=== PATIENT | male | born 1945 | race Caucasian/White ===

== ENCOUNTER 2019-02-01 16:32 | Inpatient (IN) | payer MEDICARE ==
[2019-02-01] MEDS ORDERED: NS 0.9% 1000 ML** 1,000 ML IV ONE ×3 (17:08→19:58)
[2019-02-01] MEDS ORDERED: Ondansetron INJ* 2 MG/ML VIAL IV ONE ×2 (17:08→19:27)
[2019-02-01] MEDS ORDERED: Morphine 4 MG/ML VIAL (1 ml) 4 MG/ML VIAL IV ONE (17:08)
--- NOTE | 2019-02-01 17:13 | ED ---
GI/ HPI - HPI Summary HPI Summary: 73 year old male presents with severe abdominal pain today. States pain is diffuse and radiates to his back. He is in severe pain. He admits to shortness breath with it. No chest pain. Never had this pain before. He does has history of an appendectomy with an abscess a couple years ago. Also had a hernia repair. No urinary symptoms. No diarrhea constipation. No fevers. Has history of high cholesterol and high blood pressure. no alcohol history. stets pain is worst when he takes a deep breath. no smoking history. - History of Current Complaint Chief Complaint: EDAbdPain Time Seen by Provider: 02/01/19 17:04 Stated Complaint: ABDOMINAL PAINS PER PT Pain Intensity: 8 - Allergy/Home Medications Allergies/Adverse Reactions: Allergies Allergy/AdvReac Type Severity Reaction Status Date / Time No Known Allergies Allergy Verified 02/01/19 17:13 Home Medications: Home Medications Lisinopril TAB* [Prinivil TAB*] 20 mg PO DAILY 02/01/19 [History Confirmed 02/01] Lovastatin(NF) [Mevacor(NF)] 20 mg PO DAILY 02/01/19 [History Confirmed 02/01/19 ] PMH/Surg Hx/FS Hx/Imm Hx Endocrine/Hematology History: Denies: Hx Bone Marrow Disease, Hx Diabetes, Hx Sickle Cell Disease, Hx Thyroid Disease, Hx Anemia Cardiovascular History: Denies: Hx Angina, Hx Cardiomegaly, Hx Congestive Heart Failure, Hx Coronary Artery Disease, Hx Hypertension, Hx Pacemaker/ICD, Hx Peripheral Vascular Disease, Hx Rheumatic Fever, Hx Valvular Heart Disease, Other Cardiovascular Problems/Disorders Respiratory History: Denies: Hx Asthma, Hx Chronic Obstructive Pulmonary Disease (COPD), Hx Pulmonary Edema, Hx Pulmonary Embolism, Hx Sleep Apnea, Other Respiratory Problems/Disorders GI History: Reports: Hx Jaundice Denies: Hx Cirrhosis, Hx Crohn's Disease, Hx Gastroesophageal Reflux Disease , Hx Hiatal Hernia, Hx Irritable Bowel, Hx Ulcer, Other GI Disorders History: Denies: Hx Kidney Infection, Hx Kidney Stones, Hx Renal Disease, Other Problems/Disorders Musculoskeletal History: Denies: Hx Arthritis, Hx Bursitis, Hx Tendonitis, Other Musculoskeletal History Sensory History: Denies: Hx Cataracts, Hx Contacts or Glasses, Hx Glaucoma, Hx Hearing Aid Opthamlomology History: Denies: Hx Cataracts, Hx Contacts or Glasses, Hx Glaucoma Neurological History: Denies: Hx Headaches, Hx Migraine, Hx Nerve Disease, Hx Seizures, Other Neuro Impairments/Disorders Psychiatric History: Denies: Hx Anxiety, Hx Depression, Hx Panic Disorder - Cancer History Hx Chemotherapy: No - Surgical History Surgery Procedure, Year, and Place: left inguinal hernia repair 2004. APPENDIX 2014 Hx Anesthesia Reactions: No - pt passed out after getting home from surgery Infectious Disease History: No Infectious Disease History: Denies: Hx Clostridium Difficile, Hx Hepatitis, Hx Human Immunodeficiency Virus (HIV), Hx of Known/Suspected MRSA, Hx Shingles, Hx Tuberculosis, Traveled Outside the [place] in Last 30 Days - Family History Known Family History: Positive: Non-Contributory - Social History Alcohol Use: Occasionally Substance Use Type: Reports: None Smoking Status (MU): Never Smoked Tobacco Review of Systems Negative: Fever Negative: Chest Pain Negative: Shortness Of Breath Positive: Abdominal Pain, Vomiting, Nausea. Negative: Diarrhea All Other Systems Reviewed And Are Negative: Yes Physical Exam Triage Information Reviewed: Yes Vital Signs On Initial Exam: Initial Vitals Temp Pulse Resp BP Pulse Ox 96.1 F 74 20 111/76 97 02/01/19 16:34 02/01/19 16:34 02/01/19 16:34 02/01/19 16:34 02/01/19 16:34 Vital Signs Reviewed: Yes Appearance: Positive: Well-Appearing Skin: Positive: Warm, Dry Head/Face: Positive: Normal Head/Face Inspection Eyes: Positive: Normal, Conjunctiva Clear ENT: Positive: Pharynx normal Respiratory/Lung Sounds: Positive: Clear to Auscultation, Breath Sounds Present Cardiovascular: Positive: Normal, RRR Abdomen Description: Positive: Soft, Other: - severe diffuse abd pain Bowel Sounds: Positive: Present Musculoskeletal: Positive: Normal Neurological: Positive: Normal Psychiatric: Positive: Normal Procedures - Sedation Patient Received Moderate/Deep Sedation with Procedure: No Diagnostics - Vital Signs Vital Signs Temp Pulse Resp BP Pulse Ox 02/01/19 16:34 96.1 F 74 20 111/76 97 - Laboratory Result Diagrams: 02/01/19 17:21 02/01/19 17:21 Lab Statement: Any lab studies that have been ordered have been reviewed, and results considered in the medical decision making process. - CT chest, abd CT Interpretation Completed By: Radiologist Summary of CT Findings: IMPRESSION: 1. There is cholelithiasis without pericholecystic inflammatory change. 2. There is edematous change of the pancreas with extensive peripancreatic fat stranding and nonloculated fluid which also extends along the bilateral anterior pararenal fascia, in the perihepatic and perisplenic regions, along the paracolic gutters and into the pelvis, suspicious for acute pancreatitis without loculated fluid collections. 3. No aortic dissection. 4. There is slight increase in mild prostate gland enlargement. 5. There is increased upper abdominal lymphadenopathy, particularly at the celiac axis and near the alen hepatis with the largest lymph node measuring 1.4 cm in short axis. - EKG No standard instances Cardiac Rate: NL EKG Rhythm: Sinus Rhythm Summary of EKG Findings: sinus rhythm Re-Evaluation - Re-Evaluation First Eval Change: Unchanged Comment: pain contines Second Eval Change: Improved Comment: pain improved after dilaudid but o2 dropped to 85s so placed on oxygen Third Eval Re-Evaluation Time: 20:00 Comment: discussed results pain returning GIGU Course/Dx - Course Course Of Treatment: 73 year old male presents with severe abdominal pain today. States pain is diffuse and radiates to his back. He is in severe pain. He admits to shortness breath with it. No chest pain. Never had this pain before. He does has history of an appendectomy with an abscess a couple years ago. Also had a hernia repair. No urinary symptoms. No diarrhea constipation. No fevers. Has history of high cholesterol and high blood pressure. On exam severe diffuse abdominal tenderness. Patient appears uncomfortable. wbc 27. Lactic elevated at 4 but repeat at 2. LFTs elevated: bilruibn 3, ast 261, alt 262. lipase [address] shows pancreatitis. vitals normal. dr tian called and discussed case that no need for surgery at this time. gave dose of zosyn due to potenital infection with wbc count. gave morphine with no improvement. gave dilaudid with improvement but o2 stat dropped so placed on oxygen. discussed with dr laws who agrees to admit. - Diagnoses Differential Diagnoses - Male: Abdominal Aortic Aneurysm, Gall Bladder Disease, Sepsis Provider Diagnoses: Pancreatitis Discharge ED - Sign-Out/Discharge Documenting (check all that apply): Patient Departure - Discharge Plan Condition: Stable Disposition: ADMITTED TO [facility] Referrals: No Primary Care Phys,NOPCP [Primary Care Provider] - - Billing Disposition and Condition Condition: STABLE Disposition: Admitted to [facility]
[2019-02-01 17:35] LABS: Hematocrit 56 % (42-52); Hemoglobin 19.2 g/dL (14.0-18.0); Mean Corpuscular HGB Conc 34 g/dL (31-36); Mean Corpuscular Hemoglobin 32 pg (27-31); Mean Corpuscular Volume 93 fL (80-94); Platelet Count 215 10^3/uL (150-450); Red Blood Count 6.01 10^6 /uL (4.18-5.48); Red Cell Distribution Width 14 % (10-15); White Blood Count 27.2 10^3/uL (3.5-10.8)
[2019-02-01] MEDS ORDERED: HYDROmorphone INJ1* 1 MG/ML SYRINGE IV SLOW PU ONE (17:39)
[2019-02-01 17:54] LABS: Albumin 4.3 g/dL (3.2-5.2); Albumin/Globulin Ratio 1.4 (1-3); C Reactive Protein 7.06 mg/L (<8.01); Calcium 9.7 mg/dL (8.6-10.3); EGFR African American 41.3 (>60); EGFR Non-African American 34.1 (>60); Globulin 3.1 g/dL (2-4); Potassium 4.5 mmol/L (3.5-5.0); Total Protein 7.4 g/dL (6.4-8.9)
[2019-02-01 18:11] LABS: ABS Lymphocytes 0.8 10^3/ul (1.0-4.8); ABS Monocytes 1.9 10^3/ul (0-0.8); ABS Neutrophils 24.5 10^3/ul (1.5-7.7); ABS Nucleated RBC 0.1 10^3/ul; Lymphocyte % 2.9 %; Nucleated Red Blood Cells % 0.2
[2019-02-01] MEDS ORDERED: Iodixanol* (CONTRAST) 320 MG/ML 100 ML SDV IV ONE (18:52)
[2019-02-01] MEDS ORDERED: HYDROmorphone INJ* 0.5 MG/0.5 ML SYRINGE IV SLOW PU ONE (19:15)
[2019-02-01] MEDS ORDERED: Piperacillin/Tazobac ADVAN(*) 3.375 GM in NS 0.9% 100 ML* 100 ML IVPB ONE (19:16)
[2019-02-01] MEDS ORDERED: Morphine 10 MG/ML VIAL (1 ml) IV PRN (21:00)
[2019-02-01] MEDS ORDERED: Morphine INJ* 2 MG/ML 1 ML SYRINGE (TWO MG - NEW SYRINGE VERSION) IV PRN (21:01)
--- NOTE | 2019-02-01 23:08 | HP ---
CC: Dr. Ivy * ADMISSION HISTORY AND PHYSICAL: DATE OF ADMISSION: 02/01/19 PRIMARY CARE PROVIDER: Dr. Ivy. HEALTHCARE PROXY: His . CODE STATUS: DNR. Discussed with the patient and family MOLST, filled out on his behalf. CHIEF COMPLAINT: Abdominal pain. SOURCE OF INFORMATION: History obtained from interview with the patient and his family. RELIABILITY: Very good. HISTORY OF PRESENT ILLNESS: This is a 73-year-old man with a past medical history of hypertension, hyperlipidemia, who has been feeling himself except for 1 day 3 weeks ago when he was not feeling well, had a "stomach bug" for 1 day with stomach pain. No nausea, vomiting, fevers, chills, night sweats, or changes in weight since that time until today approximately 11 a.m., was outside , working on his four kerr and felt feverish, came inside to the bathroom and started vomiting. There was sudden onset of belly pain. Continued vomiting every 30 minutes for approximately 5 hours until he presented to the emergency room. As indicated above, he has been feeling well. He did feel subjectively febrile at home today, but no chills, night sweats, no changes in weight at home, no changes in his stool caliber or frequency. No skin changes. No medication changes, no sick contacts, no travel. He was seen in the emergency room. Hospitalist service was consulted for admission. PAST MEDICAL HISTORY: Includes hypertension, hyperlipidemia. PAST SURGICAL HISTORY: History of appendectomy with abscess, hernia repair. MEDICATIONS: 1. Lisinopril 20. 2. Lovastatin 20 daily. ALLERGIES: None. FAMILY HISTORY: His mother had gastric cancer. SOCIAL HISTORY: No tobacco. Drinks approximately 4 to 5 beers per year. No substance use. He is retired. He previously owned a [employer]. REVIEW OF SYSTEMS: As per HPI, includes vomiting, abdominal pain, and otherwise all other systems are negative. PHYSICAL EXAMINATION GENERAL: Well-nourished man, sitting up in bed, intermittently groans, otherwise no apparent distress. VITAL SIGNS: In the emergency room, 132/89, heart rate 69, respiratory rate is 20, he is 95% on room air, his T-max in the emergency room is 96.1. HEENT: Oropharynx is clear. He has dry mucous membranes. Sclerae are anicteric. NECK: He has non-elevated JVD. No cervical or supraclavicular lymphadenopathy. LUNGS: Clear throughout. HEART: He has regular rate and rhythm. No murmurs, rubs, or gallops. ABDOMEN: His abdomen is soft, nondistended. He has mild tenderness to palpation throughout. EXTREMITIES: Warm and well perfused. He does have trace bilateral lower extremity edema. He has less than 2-second cap refill. NEUROLOGIC: He is alert and oriented x3. His cranial nerves II through XII are intact. He has no apparent anxiety, agitation, or depression. DIAGNOSTIC STUDIES/LAB DATA: Labs were reviewed. White blood cell count is 27.2, hemoglobin 19.2, hematocrit 56, platelets 215. His BUN is 29, his creatinine is 1.93, his glucose is 190, his lactic acid is 4.1. His total bilirubin is 3.0, AST 261, ALT 262. His lipase is 9108, amylase 262. Data reviewed. CT abdomen and pelvis: Chest, significant bilateral bibasilar opacity suspicious for pneumonitis and/or atelectasis, mediastinal and bilateral hilar lymphadenopathy. No PE. Abdomen, cholelithiasis without pericholecystic inflammatory change. Edematous change at the pancreas with extensive peripancreatic fat stranding and non-loculated fluid which is also extended to bilateral anterior pararenal fascia in the perihepatic and perisplenic regions along the pericolic gutters and into the pelvis suspicious for acute pancreatitis without loculated fluid collections. Slight increase in mild prostate gland enlargement. There was increased upper abdominal lymphadenopathy particularly at the celiac access and near the alen hepatis with the largest lymph node measuring 1.4 cm in short access. ASSESSMENT AND PLAN: This is a 73-year-old man with past medical history of hypertension, hyperlipidemia presenting with abdominal pain, findings consistent with pancreatitis. 1. Pancreatitis. Etiology unclear. No evidence of gallstones, although an ultrasound may be warranted to further interrogate the common bile duct. He may have passed the stone. Sudden onset supports an acute process like a stone. He denies all alcohol except for several drinks per year. He does have hypercholesterolemia, triglycerides will be checked in the morning. He is on minimal medications, lisinopril and lovastatin. Nothing over the counter. Of note, the patient does have mediastinal hilar and upper abdominal lymphadenopathy, unclear if this is reactive or somehow tied to the causative agent for his pancreatitis. There are infections, both bacterial and viral, which can cause pancreatitis in the setting of diffusely enlarged lymph nodes. This should be considered, if no other causative etiology is identified. For treatment of his pancreatitis, I placed him on lactated Ringer's 250 cc/hr standing. He is n.p.o. and morphine IV for pain control. Yasmine's criteria is 0 hours to include age greater than 55. White blood cell count is greater than 15,000 and his AST is greater than 250. An LDH has been added in order to utilize if thought helpful tomorrow. 2. Lactic acidosis. Suspect in the setting of pancreatitis. I did not suspect a sepsis despite leukocytosis and lactic acid. He will be getting fluid for the treatment of his pancreatitis. He did receive Zosyn in the emergency room prior to calling the hospitalist. I will not continue the antibiotics. 3. Acute kidney injury. Prerenal in the setting of pancreatitis. Fluid as indicated above. 4. Leukocytosis. As indicated above, suspect in the setting of pancreatitis. We will not continue antibiotics. Patients with pancreatitis similarly can have fevers. No evidence of necrosis on CAT scan at this time. 5. DVT prophylaxis. Heparin subcu. [id number]/[facility] #: [id number] [facility]
[2019-02-01] MEDS: Heparin VIAL(*) 5000 UNITS/ML VIAL (FIVE THOUSAND) SUBCUT SCH (23:55)
[2019-02-01] MEDS: Lactated Ringers 1000 ML Bag* 1,000 ML IV SCH (23:56)
[2019-02-02] MEDS ORDERED: Morphine INJ* 4 MG/ML 1 ML SYRINGE (NEW SYRINGE VERSION) IV PRN (00:11)
[2019-02-02] MEDS ORDERED: HYDROmorphone INJ1* 1 MG/ML SYRINGE IV SLOW PU PRN (01:40)
[2019-02-02] MEDS ORDERED: Ondansetron INJ* 2 MG/ML VIAL IV PRN (01:41)
[2019-02-02] MEDS ORDERED: HYDROmorphone INJ1* 1 MG/ML SYRINGE ONE (01:45)
[2019-02-02] MEDS: Lactated Ringers 1000 ML Bag* 1,000 ML IV SCH ×2 (04:14→07:53)
[2019-02-02] MEDS: HYDROmorphone INJ1* 1 MG/ML SYRINGE IV SLOW PU PRN ×8 (04:43→21:35)
[2019-02-02 06:47] LABS: Hematocrit 55 % (42-52); Hemoglobin 18.9 g/dL (14.0-18.0); Mean Corpuscular HGB Conc 35 g/dL (31-36); Mean Corpuscular Hemoglobin 32 pg (27-31); Mean Corpuscular Volume 93 fL (80-94); Mean Platelet Volume 7.9 fL (7.4-10.4); Platelet Count 204 10^3/uL (150-450); Red Blood Count 5.84 10^6 /uL (4.18-5.48); Red Cell Distribution Width 14 % (10-15); White Blood Count 23.6 10^3/uL (3.5-10.8)
[2019-02-02 06:49] LABS: ABS Lymphocytes 0.7 10^3/ul (1.0-4.8); ABS Monocytes 1.7 10^3/ul (0-0.8); ABS Neutrophils 21.2 10^3/ul (1.5-7.7); Lymphocyte % 2.8 %
[2019-02-02] MEDS: Heparin VIAL(*) 5000 UNITS/ML VIAL (FIVE THOUSAND) SUBCUT SCH (07:00)
[2019-02-02 07:03] LABS: Albumin 3.8 g/dL (3.2-5.2); Albumin/Globulin Ratio 1.4 (1-3); BUN/Creatinine Ratio 19.7 (8-20); Calcium 8.2 mg/dL (8.6-10.3); EGFR African American 38.9 (>60); EGFR Non-African American 32.2 (>60); Globulin 2.7 g/dL (2-4); HDL Cholesterol 24.6 mg/dL; Indirect Bilirubin 2.8 mg/dL (0.3-1.0); Magnesium 1.7 mg/dL (1.9-2.7); Total Bilirubin 3.8 mg/dL (0.2-1.0); Total Protein 6.5 g/dL (6.4-8.9)
[2019-02-02 07:06] LABS: Potassium 6.1 mmol/L (3.5-5.0)
[2019-02-02] MEDS ORDERED: CALCIUM GLUCONATE* 1 GM/10 ML VIAL (in Pyxis) IV PUSH ONE (08:08)
[2019-02-02] MEDS ORDERED: NS 0.9% 1000 ML** 1,000 ML IV SCH ×3 (08:15→20:13)
[2019-02-02] MEDS ORDERED: NS 0.9% IV ONE (08:45)
[2019-02-02] MEDS ORDERED: NS 0.9% 1000 ML** 1,000 ML IV ONE ×2 (09:12→12:03)
[2019-02-02 09:25] LABS: Corrected Retic Count 2.2 % (0.5-1.5); Hematocrit for Retic CNT 54 % (42-52); Immature Retic Fraction 0.46; RBC Retic Count 5.81 10^6/uL (4.18-5.48)
[2019-02-02 09:40] LABS: BUN/Creatinine Ratio 20.9 (8-20); Calcium 8.4 mg/dL (8.6-10.3); EGFR African American 38.3 (>60); EGFR Non-African American 31.6 (>60)
[2019-02-02 09:42] LABS: Potassium 5.7 mmol/L (3.5-5.0)
[2019-02-02 10:28] LABS: TSH (Thyroid Stimulating Horm) 2.41 mcIU/mL (0.34-5.60)
[2019-02-02] MEDS ORDERED: INSULIN REGULAR IV ONE ×3 (11:00→11:02)
[2019-02-02] MEDS ORDERED: D10W IV ONE ×3 (11:00→11:02)
[2019-02-02 13:25] LABS: Urine Appearance Cloudy; Urine Bacteria Absent (Absent); Urine Bilirubin Negative (Negative); Urine Blood 2+ (Negative); Urine Color Amber; Urine Glucose 3+(>=500 mg/dL) (Negative); Urine Ketones Negative (Negative); Urine Nitrite Negative (Negative); Urine Protein 1+(30 mg/dL) (Negative); Urine Red Blood Cell 3+(>10/hpf) (Absent); Urine Specific Gravity 1.027 (1.010-1.030); Urine Urobilinogen Negative (Negative); Urine White Blood Cell 2+(11-20/hpf) (Absent)
--- NOTE | 2019-02-02 14:33 | PN ---
Hospitalist Progress Note Date of Service: 02/02/19 Peter Vicente is a 73 year-old caucassian male with a history of HTN and HLD who presented to the [facility] ED yesterday evening (02/01/19) with complaints of acute onset severe abdominal pain, nausea, vomiting and subjective fever that began that morning while he was working outside. He was admitted by Dr. Aparicio last evening. Code status is DNR. PE, labs and imaging studies including CT and US are suggestive of acute pancreatitis due to an obstructive gallstone. Patient denies tobacco and recreational drug use and admits to only very minimal alcohol use. Family recalled a history of hyperbilirubinemia today which was not previously known to the care team. Treatment was administered today for hyperkalemia consisting of 1 gm calcium gluconate IV and 10 units of regular insulin in 500mL of D10W with some efficacy. Bolus and maintenance fluid administration totalling 3L+ has been given today - mucous membranes have been dry and urine output has been low. EKG findings have been normal. Allergies: NKA Current Hospital Medications: Enoxaparin Sodium (Lovenox(*)) 40 mg SUBCUT BEDTIME [facility] Hydromorphone HCl (Dilaudid Inj1s*) 1 mg IV SLOW PU Q2H PRN PRN Reason: PAIN - SEVERE Last Admin: 02/02/19 14:48 Dose: 1 mg Sodium Chloride (Ns 0.9% 1000 Ml) 1,000 mls @ 250 mls/hr IV PER RATE TANVI Last Admin: 02/02/19 12:37 Dose: 250 mls/hr Influenza Virus Vaccine (Fluarix Quad [id number] Syr) 0.5 ml IM .ONCE ONE Stop: 02/03/19 09:01 Ondansetron HCl (Zofran Inj*) 4 mg IV Q4H PRN PRN Reason: NAUSEA Current Home Medications: 3 Medication Instructions Recorded Confirmed Type Ibuprofen TAB* [Motrin TAB*] 400 mg PO Q6H PRN 09/11/13 02/01/19 History Lisinopril TAB* [Prinivil TAB*] 20 mg PO DAILY 02/01/19 02/01/19 History Lovastatin(NF) [Mevacor(NF)] 20 mg PO DAILY 02/01/19 02/01/19 History Vitals: 3 Temp Pulse Resp BP Pulse Ox 97.1 F 99 17 143/86 97 02/02/19 11:48 02/02/19 11:48 02/02/19 14:48 02/02/19 11:48 02/02/19 11:48 PE: General: Mr. Vicente is awake, alert and oriented person, place, time and events and pleasantly cooperates with the interview and examination today. He is obviously experiencing significant discomfort, although states that he is feeling somewhat better this afternoon, all things considered. He rates his pain at 5/ 10 which he states is the lowest his pain has been since admission, pain level at onset was 9+. HEENT: PERRLA, EOMI Chest: Lungs clear and equal bilaterally Normal S1/S2 No rubs, clicks or gallops Abdomen: Abdomen is protuberant, warm and tender to palpation, particularly in the RU/RL quadrants. Positive mata sign. Extremities: Good hand entry level management strength. Distal CMS intact. Labs: Abnormal hematology and chemistry findings: 3 02/01/19 02/01/19 02/02/19 17:21 17:21 06:40 WBC 27.2 H 23.6 H RBC 6.01 H 5.84 H Hgb 19.2 H 18.9 H Hct 56 H 55 H MCH 32 H 32 H Absolute Neuts (auto) 24.5 H 21.2 H Absolute Lymphs (auto) 0.8 L 0.7 L Absolute Monos (auto) 1.9 H 1.7 H Potassium Carbon Dioxide BUN 29 H Creatinine 1.93 H Glucose 190 H Lactic Acid Calcium Magnesium Total Bilirubin 3.00 H Direct Bilirubin Indirect Bilirubin AST 261 H ALT 262 H Lactate Dehydrogenase 380 H Amylase 262 H Lipase 9108 H 3 02/02/19 02/02/19 06:40 06:40 WBC RBC Hgb Hct MCH Absolute Neuts (auto) Absolute Lymphs (auto) Absolute Monos (auto) Potassium 6.1 H* D Carbon Dioxide 20 L BUN 40 H Creatinine 2.03 H Glucose 264 H Lactic Acid 2.2 H* Calcium 8.2 L Magnesium 1.7 L Total Bilirubin 3.80 H Direct Bilirubin 1.00 H Indirect Bilirubin 2.8 H AST 105 H ALT 163 H Lactate Dehydrogenase Amylase Lipase Urinalysis: 3 02/02/19 12:57 Urine Color Randi Urine Appearance Cloudy Urine pH 5.0 Ur Specific Cardinal 1.027 Urine Protein 1+(30 mg/dl) A Urine Ketones Negative Urine Blood 2+ A Urine Nitrate Negative Urine Bilirubin Negative Urine Urobilinogen Negative Ur Leukocyte Esterase Negative Urine WBC (Auto) 2+(11-20/hpf) A Urine RBC (Auto) 3+(>10/hpf) A Urine Bacteria Absent Urine Glucose 3+(>=500 mg/dl) A Abdominal ultrasound pertinent findings (02/02/19): "1. A nonobstructive thrombus versus laminar flow in the main and right portal vein is suspected based on comparison CT. Right upper quadrant with Doppler imaging is recommended for further evaluation." "2. In correlation with the recent abdominal CT, a 4 mm calculus near the sphincter of Bird a suspected. The common bile duct measures 0.7 cm." "3. The nondilated gallbladder contains additional gallstones. The trace pericholecystic fluid could be reactive to acute pancreatitis." Abdominal CT pertinent findings (02/01/19): "1. There is cholelithiasis without pericholecystic inflammatory change." "2. There is edematous change of the pancreas with extensive peripancreatic fat stranding and nonloculated fluid which also extends along the bilateral anterior pararenal fascia, in the perihepatic and perisplenic regions, along the paracolic gutters and into the pelvis, suspicious for acute pancreatitis without loculated fluid collections." Assessment: 73-year old caucassian male with Hx of HTN, HLD and hyperbilirubinemia presents with acute onset severe abdominal pain, N/V, subjective fever - working diagnosis of acute pancreatitis due to obstructive gallstone as suggested by imaging and labs with numerous hematology and chemistry abnormalities as above, notably hyperkalemia. Acute pancreatitis: Ruled in by PE, elevated lipase and amylase. Suspect obstructive gallstone etiology based on CT and US. Ruled out alcoholic etiology by history. Ruled out hypertriglyceridemia etiology by labs. Ruled out hypercalcemia etiology by labs. ANABELLA: Diagnosis based upon creatinine elevation to twice patient's last known baseline and low urine output Hyperkalemia: Suspect either dehydration or ANABELLA etiology Plan: Acute pancreatitis: Repeat BMP Q4 hours, adjust frequency as stability changes Radiology referral for MRCP GI referral for ERCP ANABELLA: Continue bolus and maintenance fluid administration Strict I&O monitoring Monitor repeat labs Hyperkalemia: Continue bolus and maintenance fluid administration Monitor repeat labs Repeat EKG if potassium rises to critical values Other hematologic and chemistry abnormalities: Monitor repeat BMP findings as hydration improves and reassess Pain: Continue PRN hydromorphone as above Consider switching to meperidine to potentially reduce sphincter of Bird pressure Hypertension: Restart lisinopril upon discharge as above Hyperlipidemia: Restart lovastatin upon discharge as above
[2019-02-02 15:12] LABS: Albumin 3.4 g/dL (3.2-5.2); Albumin/Globulin Ratio 1.4 (1-3); BUN/Creatinine Ratio 21.3 (8-20); Calcium 7.3 mg/dL (8.6-10.3); EGFR African American 38.1 (>60); EGFR Non-African American 31.5 (>60); Globulin 2.5 g/dL (2-4); Total Protein 5.9 g/dL (6.4-8.9)
[2019-02-02 16:20] LABS: Indirect Bilirubin 3.1 mg/dL (0.3-1.0); Potassium 5.6 mmol/L (3.5-5.0)
[2019-02-02] MEDS ORDERED: Piperacillin/Tazobac ADVAN(*) 3.375 GM in NS 0.9% 100 ML* 100 ML IVPB ONE (16:57)
[2019-02-02] MEDS ORDERED: Zosyn per Pharmacy* NOTE FOLLOW UP SCH (17:00)
[2019-02-02] MEDS ORDERED: Sodium Polystyrene RECTAL* 30 GM/120 ML RECTAL.SUS PR ONE (17:00)
--- NOTE | 2019-02-02 17:17 | CONS ---
GASTROENTEROLOGY CONSULT: DATE OF CONSULT: 02/02/19 REFERRING PHYSICIAN: Dr. Jose Juan Aparicio. REASON FOR CONSULT: Pancreatitis with known gallstones including suspicious common bile duct 4 mm finding on US. 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 He had been feeling well of late. At 11 a.m. on 02/01/19, he developed acute midline upper abdominal pain. There was nausea and vomiting and this continued repeatedly for a couple of hours. Pain settled down a little bit. He did come to the emergency room at around 5 p.m. and was admitted after multiple studies. These included CT abdomen and pelvis with contrast showing mediastinal and bilateral hilar adenopathy, no pulmonary embolism, cholelithiasis with an edematous pancreas, a slightly enlarged liver without focal finding, and a 7 mm common duct. His LFTs were abnormal with bilirubin 3.0, alkaline phosphatase 76, ALT 262, and lipase was 9108. He was in significant pain. He was admitted, given IV fluid. He has continued to have some epigastric pain. He has passed some flatus. He has been up and about. He has been afebrile, blood pressure 143/86, pulse 99. Labs have shown his creatinine rising from 1.93 to 2.07. His ALT has fallen to 123. Bilirubin has risen to 5.0. Today, ultrasound shows gallbladder with stones, some pericholecystic fluid, CBD 7 mm diameter and suspicion for a 4 mm calculus. PAST MEDICAL HISTORY: 1. Mild obesity. 2. Hypertension. 3. Dyslipidemia. 4. History of appendectomy in 2015 with abscess. MEDICATIONS: At home: Lisinopril 20. Lovastatin 20. Ibuprofen 400 p.r.n. ALLERGIES: None. FAMILY HISTORY: No history of colon cancer. His mother had gastric cancer. SOCIAL HISTORY: He owned a [employer] business. He has a daughter who is a nurse , in the pain clinic. REVIEW OF SYSTEMS: No history of migraines, seizures, CVA, TIA, NM, bypass, arrhythmias, syncope, anticoagulant use. PHYSICAL EXAM: He is a healthy-appearing, mildly overweight, older man appearing in vigorous good health in general. HEENT exam is unremarkable. He is not overtly jaundiced, though his sclerae are muddy. He has no adenopathy. Breath sounds are diminished at the bases. Heart sounds are regular. The abdomen is symmetric, rounded with a right lower quadrant scar. Bowel sounds are present distantly, but definitely present. He is diffusely tender in the upper abdomen. He has no edema. IMPRESSION: This 73-year-old man presents with probable gallstone pancreatitis. It appears to be more severe than average given the fluid need and rise in Cr. He may have passed the stone and the falling ALT would suggest that along with the alkaline phosphatase not rising. Bilirubin could be a nonspecific event in conjunction with pancreatic edema compressing the common bile duct. The question of passage of a stone versus it being retained is being investigated via MRCP. Addendum: MRCP negative [id number]/[facility] #: [id number] [facility]
--- NOTE | 2019-02-02 17:52 | PN ---
Subjective Date of Service: 02/02/19 Interval History: Patient complained of severe abdominal pain, 10/21, radiating to the back. Noted dark urine at bedside. He felt dry and uncomfortable, felt abdominal bloated. No chest pain, palpitation, SOB. Initial concern of hemolysis based on initial results with elevated indirect evelyn with elevated K and LDH. 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 baseline total bilirubin is about 3. Denied alcohol use, denied new medication/food/herbs, denied trauma Objective Active Medications: Enoxaparin Sodium (Lovenox(*)) 40 mg SUBCUT BEDTIME [facility] Hydromorphone HCl (Dilaudid Inj1s*) 1 mg IV SLOW PU Q2H PRN PRN Reason: PAIN - SEVERE Last Admin: 02/02/19 17:41 Dose: 1 mg Sodium Chloride (Ns 0.9% 1000 Ml) 1,000 mls @ 250 mls/hr IV PER RATE [facility] Last Admin: 02/02/19 12:37 Dose: 250 mls/hr Influenza Virus Vaccine (Fluarix Quad [id number] Syr) 0.5 ml IM .ONCE ONE Stop: 02/03/19 09:01 Ondansetron HCl (Zofran Inj*) 4 mg IV Q4H PRN PRN Reason: NAUSEA Pharmacy Consult (Zosyn Per Pharmacy*) 1 note FOLLOW UP .ZOSYN PER PHARMACY [facility] Vital Signs - 8 hr 02/02/19 02/02/19 02/02/19 10:47 11:28 11:48 Temperature 97.1 F Pulse Rate 99 Respiratory 18 18 24 Rate Blood Pressure 143/86 (mmHg) O2 Sat by Pulse 97 Oximetry 02/02/19 02/02/19 02/02/19 12:37 14:48 17:41 Temperature Pulse Rate Respiratory 20 17 19 Rate Blood Pressure (mmHg) O2 Sat by Pulse Oximetry Oxygen Devices in Use Now: Nasal Cannula Exam: Appearance: alert. Respiratory: Clear to Auscultation Cardiovascular: Bibasal creps; No Murmurs; No JVD Abdominal: Distended, generalized tenderness, more on LUQ. Extremities: no peripheral edema. Skin: no rashes seen. Lines/Tubes/Other Access: Clean, Dry and Intact Peripheral IV Result Diagrams: 02/02/19 06:40 02/02/19 14:45 Assess/Plan/Problems-Billing Assessment: 73 y/o male with history of HTN, HLD, Gilbert syndrome, presented with sudden onset of abdominal pain, found to have acute pancreatitis with an obstructive picture, concerning for gallstone pancreatitis. Course complicated by ANABELLA with hyperK and metabolic acidosis. - Patient Problems (1) Pancreatitis, acute Current Visit: Yes Status: Acute Code(s): K85.90 - ACUTE PANCREATITIS WITHOUT NECROSIS OR INFECTION, UNSP SNOMED Code(s): 718691590 Comment: -Etiology unclear yet, though gallstone pancreatitis likely with the presence of cholelithiasis and dilated bile duct on imaging. other possibility including passed gallstone, malignancy with presence of lymphadenopathy. Alcohol and hypertriglycemia is ruled out - Agreesive volume repletion, monitor urine output (make sure 50ml/h at least), goal is to decrease BUN and HCT in the next 24 hours. - change to NS from LR due to hyperK - watch volume status closely. (2) ANABELLA (acute kidney injury) Current Visit: Yes Status: Acute Code(s): N17.9 - ACUTE KIDNEY FAILURE, UNSPECIFIED SNOMED Code(s): 24102546 Comment: - could be intravascular depletion from pancreatitis and dehydration - hydration and monitor creatinine (3) Hyperkalemia Current Visit: Yes Status: Acute Code(s): E87.5 - HYPERKALEMIA SNOMED Code (s): 26801621 Comment: - likely due to ANABELLA, other possibilities including hemolysis, tumor lysis can not be ruled out. - put on telemetry - EKG no changes - gave insulin/dextrose, calcium gluconate today - repeat BMP every 6 hours overnight (4) DVT prophylaxis Current Visit: Yes Status: Acute Code(s): Z29.9 - ENCOUNTER FOR PROPHYLACTIC MEASURES, UNSPECIFIED SNOMED Code(s): 167887028 Comment: on Lovenox Status and Disposition: Inpatient Medicine Attestation Documenting Resident: Kaelyn Ledezma Supervising Physician: Laxmi Garcia Attestation: This service has been performed in part by a resident under the direction of a teaching physician.I, Laxmi Garcia, performed the service, or was physically present during the critical, or chavez portions of the service, furnished by the resident. I participated in the management of the patient.
[2019-02-02 17:54] LABS: Hematocrit 54 % (42-52); Hemoglobin 18.2 g/dL (14.0-18.0); Mean Corpuscular HGB Conc 34 g/dL (31-36); Mean Corpuscular Hemoglobin 32 pg (27-31); Mean Corpuscular Volume 94 fL (80-94); Mean Platelet Volume 8.2 fL (7.4-10.4); Platelet Count 209 10^3/uL (150-450); Red Blood Count 5.71 10^6 /uL (4.18-5.48); Red Cell Distribution Width 14 % (10-15); White Blood Count 29.3 10^3/uL (3.5-10.8)
[2019-02-02 18:07] LABS: Albumin 3.5 g/dL (3.2-5.2); Albumin/Globulin Ratio 1.3 (1-3); BUN/Creatinine Ratio 20.5 (8-20); Calcium 7.7 mg/dL (8.6-10.3); EGFR Non-African American 27.3 (>60); Globulin 2.7 g/dL (2-4); Indirect Bilirubin 3.2 mg/dL (0.3-1.0); Total Bilirubin 4.4 mg/dL (0.2-1.0); Total Protein 6.2 g/dL (6.4-8.9)
[2019-02-02 18:09] LABS: Potassium 5.7 mmol/L (3.5-5.0)
--- NOTE | 2019-02-02 19:44 | DCNOTE ---
Subjective Date of Service: 02/02/19 Interval History: HISTORY OF PRESENT ILLNESS: This is a 73-year-old man with a past medical history of hypertension who has been in his usual state of health except for 1 day, three weeks ago, when he was not feeling well, as he had a "stomach bug" for 1 day with stomach pain. No nausea, vomiting, fevers, chills, night sweats, or changes in weight since that time until day or presentation, at approximately 11 a.m., when he was outside working on his four kerr and felt feverish, came inside to the bathroom and started vomiting. There was sudden onset of belly pain. He continued vomiting every 30 minutes for approximately 5 hours until he presented to the emergency room. He did feel subjectively febrile at home today , but no chills, night sweats, no changes in weight at home, no changes in his stool caliber or frequency. No skin changes. No medication changes, no sick contacts, no travel. He was seen in the emergency room. Hospitalist service was consulted for admission. HOSPITAL COURSE: CT of abdomen in ER was concerning for edematous change at the pancreas, and lipase resulted 9,108. He was made NPO, started on IVF, and admitted to Medicine. Given concern for cholelithiasis on Abd CT, an MRCP was performed in case of need for ERCP. However, this was without evidence of biliary obstruction. Throughout first full day of admission, patient's leukocytosis progressed. His lactic acid, while initially improving, began to increase. He also had hyperkalemia to 6.1, without concerning EKG changes, and this decreased to 5.7 after changing LR to NS. His fluids were increased to 500 cc/hr , and he was transferred to the ICU for closer monitoring given worsening of pain, leukocytosis, creatinine, and lactate. He was seen and evaluated by surgery, who recommended more aggressive fluid resuscitation with target of higher UOP. Pt was unable to undergo repeat CT Abd/Pelvis after parameters worsened, as his renal function was worsening after IV contrast on presentation. Given possibility of need for surgical intervention, decision was made to transfer to a higher level of care with pertinent surgical services. Medical and Surgical team discussed seriousness of prognosis with family. Exam: CT Angiography Abdomen and Pelvis With Contrast Exam date and time: 02/01/2019 7:04 PM VASCULATURE: Aorta: There minimal atherosclerotic aortic and iliac artery calcifications. No aortic dissection. Celiac trunk and mesenteric arteries: No occlusion or significant stenosis. Renal arteries: No occlusion or significant stenosis. Right iliac arteries: No occlusion or significant stenosis. Left iliac arteries: No occlusion or significant stenosis. ABDOMEN and PELVIS: Liver: Stable hepatomegaly. Gallbladder and bile ducts: There is cholelithiasis without pericholecystic inflammatory change. Pancreas: There is edematous change of the pancreas with extensive peripancreatic fat stranding and nonloculated fluid which also extends along the bilateral anterior pararenal fascia, in the perihepatic and perisplenic regions, along the paracolic gutters and into the pelvis, suspicious for acute pancreatitis without loculated fluid collections. Spleen: Unremarkable. No splenomegaly. Adrenals: Unremarkable. No mass. Kidneys and ureters: There are subcentimeter low attenuation lesions of the kidneys that are too small to characterize. Stomach and bowel: Unremarkable. No obstruction. No mucosal thickening. Appendix: Likely postoperative changes of appendectomy. Intraperitoneal space: Unremarkable. No free air. No significant fluid collection. Lymph nodes: There is increased upper abdominal lymphadenopathy, particularly at the celiac axis and near the alen hepatis with the largest lymph node measuring 1.4 cm in short axis. IMPRESSION: 1. There is cholelithiasis without pericholecystic inflammatory change. 2. There is edematous change of the pancreas with extensive peripancreatic fat stranding and nonloculated fluid which also extends along the bilateral anterior pararenal fascia, in the perihepatic and perisplenic regions, along the paracolic gutters and into the pelvis, suspicious for acute pancreatitis without loculated fluid collections. 3. No aortic dissection. 4. There is slight increase in mild prostate gland enlargement. 5. There is increased upper abdominal lymphadenopathy, particularly at the celiac axis and near the alen hepatis with the largest lymph node measuring 1.4 cm in short axis. Exam: CT Angiography Chest With Contrast Exam date and time: 02/01/2019 7:04 PM FINDINGS: Pulmonary arteries: No visible acute pulmonary embolism. Aorta: There are atherosclerotic aortic calcifications. No aortic dissection. Lungs: There is bibasilar and bilateral dependent atelectatic change. There is significant bilateral bibasilar opacities suspicious for pneumonitis and/or atelectasis. Pleural space: Unremarkable. No pneumothorax. No pleural effusion. Heart: Unremarkable. No cardiomegaly. No pericardial effusion. Lymph nodes: There is mediastinal and bilateral hilar lymphadenopathy. Bones/joints: Unremarkable. No acute fracture. Soft tissues: Unremarkable. Other findings: Findings in the upper abdomen are described in the CT abdomen and pelvis dictation of the same day. IMPRESSION: 1. There is significant bilateral bibasilar opacity suspicious for pneumonitis and/or atelectasis. 2. There is mediastinal and bilateral hilar lymphadenopathy. 3. No visible acute pulmonary embolism. 4. No aortic dissection. ULTRASOUND ABDOMEN LIMITED Exam Date: 02/02/19 1001 IMPRESSION: 1. A nonobstructive thrombus versus laminar flow in the main and right portal vein is suspected based on comparison CT. Right upper quadrant with Doppler imaging is recommended for further evaluation. 2. In correlation with the recent abdominal CT, a 4 mm calculus near the sphincter of Bird a suspected. The common bile duct measures 0.7 cm. 3. The nondilated gallbladder contains additional gallstones. The trace pericholecystic fluid could be reactive to acute pancreatitis. MRI CHOLANGIOGRAM (MRCP) Exam Date: 02/02/19 1254 FINDINGS: The liver and spleen are normal in size. No significant focal abnormality is seen. At least 3 subcentimeter gallstones are noted in the dependent portion of the gallbladder. There is no pathologic wall thickening of the gallbladder. There are no stones identified in the common bile duct. The common bile duct measures just under 7 mm in diameter. There is mildly increased T2 signal in the pancreas. There is trace peripancreatic fluid as well as a small amount of fluid around the liver. The adrenal glands and kidneys are normal in size. Fluid density renal cysts are noted bilaterally. No mass is seen. There is no evidence for hydronephrosis. IMPRESSION: 1. Cholelithiasis without choledocholithiasis or evidence of pathologic biliary obstruction. 2. MR findings are consistent with pancreatitis. 3. Small right pleural effusion is noted. Objective Active Medications: Enoxaparin Sodium (Lovenox(*)) 40 mg SUBCUT BEDTIME [facility] Hydromorphone HCl (Dilaudid Inj1s*) 2 mg IV SLOW PU Q2H PRN PRN Reason: PAIN - SEVERE Last Admin: 02/02/19 19:29 Dose: 2 mg Piperacillin Sod/Tazobactam (Sod 3.375 gm/ Sodium Chloride) 100 mls @ 25 mls/ hr IVPB [facility] Sodium Chloride (Ns 0.9% 1000 Ml) 1,000 mls @ 500 mls/hr IV PER RATE [facility] Influenza Virus Vaccine (Fluarix Quad [id number] Syr) 0.5 ml IM .ONCE ONE Stop: 02/03/19 09:01 Ondansetron HCl (Zofran Inj*) 4 mg IV Q4H PRN PRN Reason: NAUSEA Pharmacy Consult (Zosyn Per Pharmacy*) 1 note FOLLOW UP .[facility] PER [facility] Vital Signs - 8 hr 02/02/19 02/02/19 02/02/19 11:28 11:48 12:37 Temperature 97.1 F Pulse Rate 99 Respiratory 18 24 20 Rate Blood Pressure 143/86 (mmHg) O2 Sat by Pulse 97 Oximetry 02/02/19 02/02/19 02/02/19 14:48 15:46 17:41 Temperature 98.9 F Pulse Rate 85 Respiratory 17 21 19 Rate Blood Pressure 112/81 (mmHg) O2 Sat by Pulse 97 Oximetry 02/02/19 02/02/19 19:05 19:10 Temperature 100.0 F 100.1 F Pulse Rate 127 127 Respiratory 30 30 Rate Blood Pressure 116/78 116/78 (mmHg) O2 Sat by Pulse 95 95 Oximetry Oxygen Devices in Use Now: Nasal Cannula Appearance: appears younger than stated age, uncomfortable, frequent belches Ears/Nose/Mouth/Throat: Clear Oropharnyx, Mucous Membranes Moist Neck: NL Appearance and Movements; NL JVP, Trachea Midline Respiratory: Symmetrical Chest Expansion and Respiratory Effort, - - bibasilar crackles Cardiovascular: NL Sounds; No Murmurs; No JVD, RRR Abdominal: - - distended, diffusely tender, guarding, no rebound Extremities: No Edema Skin: No Rash or Ulcers Neurological: Alert and Oriented x 3 Result Diagrams: 02/02/19 17:39 02/02/19 17:39 Additional Lab and Data: Laboratory Results - last 24 hr 02/01/19 02/01/19 02/01/19 17:21 17:21 21:23 WBC 27.2 H RBC 6.01 H RBC (Retic) Hgb 19.2 H Hct 56 H HCT (Retic) MCV 93 MCH 32 H MCHC 34 RDW 14 Plt Count 215 MPV 8.0 Neut % (Auto) 89.9 Lymph % (Auto) 2.9 Dunn % (Auto) 7.1 Eos % (Auto) 0.0 Baso % (Auto) 0.1 Absolute Neuts (auto) 24.5 H Absolute Lymphs (auto) 0.8 L Absolute Monos (auto) 1.9 H Absolute Eos (auto) 0.0 Absolute Basos (auto) 0.0 Absolute Nucleated RBC 0.1 Nucleated RBC % 0.2 Retic Count, Calc Corrected Retic Count Retic Shift Factor Retic Production Index Immature Retic Fraction Mean Retic Volume Sodium 139 Potassium 4.5 Chloride 101 Carbon Dioxide 27 Anion Gap 11 BUN 29 H Creatinine 1.93 H Est GFR ( Amer) 41.3 Est GFR (Non-Af Amer) 34.1 BUN/Creatinine Ratio 15.0 Glucose 190 H Lactic Acid 2.4 H* Calcium 9.7 Magnesium Total Bilirubin 3.00 H Direct Bilirubin Indirect Bilirubin AST 261 H ALT 262 H Alkaline Phosphatase 76 Lactate Dehydrogenase 380 H Total Creatine Kinase Troponin I 0.00 C-Reactive Protein 7.06 Total Protein 7.4 Albumin 4.3 Globulin 3.1 Albumin/Globulin Ratio 1.4 Triglycerides Cholesterol LDL Cholesterol HDL Cholesterol Amylase 262 H Lipase 9108 H TSH Urine Color Urine Appearance Urine pH Ur Specific [place] Urine Protein Urine Ketones Urine Blood Urine Nitrate Urine Bilirubin Urine Urobilinogen Ur Leukocyte Esterase Urine WBC (Auto) Urine RBC (Auto) Urine Bacteria Urine Glucose Direct Antiglob Test 02/02/19 02/02/19 02/02/19 06:40 06:40 06:40 WBC 23.6 H RBC 5.84 H RBC (Retic) Hgb 18.9 H Hct 55 H HCT (Retic) MCV 93 MCH 32 H MCHC 35 RDW 14 Plt Count 204 MPV 7.9 Neut % (Auto) 89.8 Lymph % (Auto) 2.8 Dunn % (Auto) 7.3 Eos % (Auto) 0.0 Baso % (Auto) 0.1 Absolute Neuts (auto) 21.2 H Absolute Lymphs (auto) 0.7 L Absolute Monos (auto) 1.7 H Absolute Eos (auto) 0.0 Absolute Basos (auto) 0.0 Absolute Nucleated RBC 0.0 Nucleated RBC % 0.0 Retic Count, Calc Corrected Retic Count Retic Shift Factor Retic Production Index Immature Retic Fraction Mean Retic Volume Sodium 135 Potassium 6.1 H* D Chloride 105 Carbon Dioxide 20 L Anion Gap 10 BUN 40 H Creatinine 2.03 H Est GFR ( Amer) 38.9 Est GFR (Non-Af Amer) 32.2 BUN/Creatinine Ratio 19.7 Glucose 264 H Lactic Acid 2.2 H* Calcium 8.2 L Magnesium 1.7 L Total Bilirubin 3.80 H Direct Bilirubin 1.00 H Indirect Bilirubin 2.8 H AST 105 H ALT 163 H Alkaline Phosphatase 62 Lactate Dehydrogenase Total Creatine Kinase Troponin I C-Reactive Protein Total Protein 6.5 Albumin 3.8 Globulin 2.7 Albumin/Globulin Ratio 1.4 Triglycerides 164 Cholesterol 122 LDL Cholesterol 65 HDL Cholesterol 24.6 Amylase Lipase TSH Urine Color Urine Appearance Urine pH Ur Specific [place] Urine Protein Urine Ketones Urine Blood Urine Nitrate Urine Bilirubin Urine Urobilinogen Ur Leukocyte Esterase Urine WBC (Auto) Urine RBC (Auto) Urine Bacteria Urine Glucose Direct Antiglob Test 02/02/19 02/02/19 02/02/19 06:40 09:11 09:11 WBC RBC RBC (Retic) 5.81 H Hgb Hct HCT (Retic) 54 H MCV MCH MCHC RDW Plt Count MPV Neut % (Auto) Lymph % (Auto) Dunn % (Auto) Eos % (Auto) Baso % (Auto) Absolute Neuts (auto) Absolute Lymphs (auto) Absolute Monos (auto) Absolute Eos (auto) Absolute Basos (auto) Absolute Nucleated RBC Nucleated RBC % Retic Count, Calc 1.8 H Corrected Retic Count 2.2 H Retic Shift Factor 1.0 Retic Production Index 2.20 Immature Retic Fraction 0.46 Mean Retic Volume 111.4 Sodium 134 L Potassium 5.7 H Chloride 105 Carbon Dioxide 18 L Anion Gap 11 BUN 43 H Creatinine 2.06 H Est GFR ( Amer) 38.3 Est GFR (Non-Af Amer) 31.6 BUN/Creatinine Ratio 20.9 H Glucose 263 H Lactic Acid Calcium 8.4 L Magnesium Total Bilirubin Direct Bilirubin Indirect Bilirubin AST ALT Alkaline Phosphatase Lactate Dehydrogenase Total Creatine Kinase 58 Troponin I C-Reactive Protein Total Protein Albumin Globulin Albumin/Globulin Ratio Triglycerides Cholesterol LDL Cholesterol HDL Cholesterol Amylase Lipase TSH 2.41 Urine Color Urine Appearance Urine pH Ur Specific [place] Urine Protein Urine Ketones Urine Blood Urine Nitrate Urine Bilirubin Urine Urobilinogen Ur Leukocyte Esterase Urine WBC (Auto) Urine RBC (Auto) Urine Bacteria Urine Glucose Direct Antiglob Test Negative 02/02/19 02/02/19 02/02/19 09:11 12:57 14:45 WBC RBC RBC (Retic) Hgb Hct HCT (Retic) MCV MCH MCHC RDW Plt Count MPV Neut % (Auto) Lymph % (Auto) Dunn % (Auto) Eos % (Auto) Baso % (Auto) Absolute Neuts (auto) Absolute Lymphs (auto) Absolute Monos (auto) Absolute Eos (auto) Absolute Basos (auto) Absolute Nucleated RBC Nucleated RBC % Retic Count, Calc Corrected Retic Count Retic Shift Factor Retic Production Index Immature Retic Fraction Mean Retic Volume Sodium 135 Potassium 5.6 H Chloride 108 Carbon Dioxide 20 L Anion Gap 7 BUN 44 H Creatinine 2.07 H Est GFR ( Amer) 38.1 Est GFR (Non-Af Amer) 31.5 BUN/Creatinine Ratio 21.3 H Glucose 273 H Lactic Acid 2.5 H* Calcium 7.3 L Magnesium Total Bilirubin 5.00 H Direct Bilirubin 1.90 H Indirect Bilirubin 3.1 H AST 83 H ALT 123 H Alkaline Phosphatase 54 Lactate Dehydrogenase Total Creatine Kinase Troponin I C-Reactive Protein Total Protein 5.9 L Albumin 3.4 Globulin 2.5 Albumin/Globulin Ratio 1.4 Triglycerides Cholesterol LDL Cholesterol HDL Cholesterol Amylase Lipase TSH Urine Color Randi Urine Appearance Cloudy Urine pH 5.0 Ur Specific [place] 1.027 Urine Protein 1+(30 mg/dl) A Urine Ketones Negative Urine Blood 2+ A Urine Nitrate Negative Urine Bilirubin Negative Urine Urobilinogen Negative Ur Leukocyte Esterase Negative Urine WBC (Auto) 2+(11-20/hpf) A Urine RBC (Auto) 3+(>10/hpf) A Urine Bacteria Absent Urine Glucose 3+(>=500 mg/dl) A Direct Antiglob Test 02/02/19 02/02/19 02/02/19 14:45 17:39 17:39 WBC 29.3 H RBC 5.71 H RBC (Retic) Hgb 18.2 H Hct 54 H HCT (Retic) MCV 94 MCH 32 H MCHC 34 RDW 14 Plt Count 209 MPV 8.2 Neut % (Auto) Lymph % (Auto) Dunn % (Auto) Eos % (Auto) Baso % (Auto) Absolute Neuts (auto) Absolute Lymphs (auto) Absolute Monos (auto) Absolute Eos (auto) Absolute Basos (auto) Absolute Nucleated RBC Nucleated RBC % Retic Count, Calc Corrected Retic Count Retic Shift Factor Retic Production Index Immature Retic Fraction Mean Retic Volume Sodium 136 Potassium 5.7 H Chloride 107 Carbon Dioxide 20 L Anion Gap 9 BUN 48 H Creatinine 2.34 H Est GFR ( Amer) 33.0 Est GFR (Non-Af Amer) 27.3 BUN/Creatinine Ratio 20.5 H Glucose 280 H Lactic Acid 3.3 H* Calcium 7.7 L Magnesium Total Bilirubin 4.40 H Direct Bilirubin 1.20 H Indirect Bilirubin 3.2 H AST 78 H ALT 118 H Alkaline Phosphatase 57 Lactate Dehydrogenase Total Creatine Kinase Troponin I C-Reactive Protein Total Protein 6.2 L Albumin 3.5 Globulin 2.7 Albumin/Globulin Ratio 1.3 Triglycerides Cholesterol LDL Cholesterol HDL Cholesterol Amylase Lipase TSH Urine Color Urine Appearance Urine pH Ur Specific [place] Urine Protein Urine Ketones Urine Blood Urine Nitrate Urine Bilirubin Urine Urobilinogen Ur Leukocyte Esterase Urine WBC (Auto) Urine RBC (Auto) Urine Bacteria Urine Glucose Direct Antiglob Test 02/02/19 17:39 WBC RBC RBC (Retic) Hgb Hct HCT (Retic) MCV MCH MCHC RDW Plt Count MPV Neut % (Auto) Lymph % (Auto) Dunn % (Auto) Eos % (Auto) Baso % (Auto) Absolute Neuts (auto) Absolute Lymphs (auto) Absolute Monos (auto) Absolute Eos (auto) Absolute Basos (auto) Absolute Nucleated RBC Nucleated RBC % Retic Count, Calc Corrected Retic Count Retic Shift Factor Retic Production Index Immature Retic Fraction Mean Retic Volume Sodium Potassium Chloride Carbon Dioxide Anion Gap BUN Creatinine Est GFR ( Amer) Est GFR (Non-Af Amer) BUN/Creatinine Ratio Glucose Lactic Acid 3.7 H* Calcium Magnesium Total Bilirubin Direct Bilirubin Indirect Bilirubin AST ALT Alkaline Phosphatase Lactate Dehydrogenase Total Creatine Kinase Troponin I C-Reactive Protein Total Protein Albumin Globulin Albumin/Globulin Ratio Triglycerides Cholesterol LDL Cholesterol HDL Cholesterol Amylase Lipase TSH Urine Color Urine Appearance Urine pH Ur Specific [place] Urine Protein Urine Ketones Urine Blood Urine Nitrate Urine Bilirubin Urine Urobilinogen Ur Leukocyte Esterase Urine WBC (Auto) Urine RBC (Auto) Urine Bacteria Urine Glucose Direct Antiglob Test Microbiology and Other Data: Microbiology 02/01/19 18:41 Aerobic Blood Culture - Preliminary Blood Venous No Growth Day 1 Anaerobic Blood Culture - Preliminary No Growth Day 1 02/01/19 18:41 Aerobic Blood Culture - Preliminary Blood Venous No Growth Day 1 Anaerobic Blood Culture - Preliminary No Growth Day 1 Assess/Plan/Problems-Billing Assessment: 73M with HTN, Gilbert syndrome, presented with sudden onset of abdominal pain radiating to back associated with vomiting, found to have acute pancreatitis with parameters worsening with aggressive fluid resuscitation. MRCP without obstruction. Course complicated by worsening renal function, increasing lactic acidosis, and hyperkalemia. Will be transferred to higher level of care for possible surgical intervention. # Acute pancreatitis. - cont IVF, now NS 500 cc/hr, monitor UOP closely - monitor respiratory status, pt may require intubation - patient will require emergent surgical evaluation - serial abdominal exams - will need repeat CT Abd/Pelvis with contrast # ANABELLA, hyperkalemia - likely from dehydration from pancreatitis, worsened by contrast - cont aggressive IVF - monitor BMP, has had elevated potassium, s/p Kayexalate - telemetry Patient will require Critical Care. Status and Disposition: Critial Care. Transfer to [facility].
[2019-02-02] MEDS ORDERED: Enoxaparin(*) 40 MG/0.4 ML SYR SUBCUT SCH (21:00)
--- NOTE | 2019-02-02 21:26 | CONS ---
CC: Tabby Ivy MD * CONSULTATION REPORT: DATE OF CONSULT: 02/02/19 REQUESTING PHYSICIAN: Laxmi Garcia MD REASON FOR CONSULTATION: Acute pancreatitis with concern for necrotizing pancreatitis. HISTORY OF PRESENT ILLNESS: Mr. Vicente is a 73-year-old gentleman admitted to [facility] on 02/01/19 after presenting to the emergency room with severe sudden onset epigastric abdominal pain radiating to his back which began at 11 a.m. He presented to the emergency room at about 4 p.m. He had associated nausea, vomiting. At the time of the presentation, he was assessed by the emergency room staff and because of back pain, shortness of breath, he was sent for CT angiogram. The imaging study was notable for bibasilar opacities suspicious for pneumonitis or atelectasis. No pulmonary embolism. He was noted to have gallstones and extensive pancreatitis with stranding into the bilateral perirenal fascia, perihepatic, perisplenic regions. He was admitted to the medical service. At the time of admission, he did have evidence of severe pancreatitis with a hematocrit of 55. He also had a potassium of 6.1. His BUN was 40, creatinine was 2 and his lactate was 2.4. He had a total bilirubin of 3.8 with a direct bilirubin of 1 and he had elevation of his ALT, AST. Amylase was 262 and lipase was 9108. Through the course of the day, he did not make much urine, but did receive about 8 L of crystalloid. He underwent abdominal ultrasound, which showed a 4-mm gallstone near the sphincter of Oddi, a common bile duct of 0.7 cm and additional gallstones. He then underwent an MRCP which showed no choledocholithiasis and findings of pancreatitis. He was seen also by Dr. Bowen from GI service, but with no choledocholithiasis , no ERCP was recommended. Due to his worsening clinical course, surgical evaluation was requested. PAST MEDICAL HISTORY: Significant for hypertension, hyperlipidemia. PAST SURGICAL HISTORY: He had inguinal hernia repair and appendectomy for perforated appendicitis and a secondary small bowel obstruction. MEDICATIONS: Home medications: 1. Lisinopril. 2. Lovastatin. Current medications: 1. Ondansetron. 2. Zosyn. 3. Dilaudid. 4. Normal saline. 5. Lovenox. ALLERGIES: None known. FAMILY HISTORY: Gastric cancer in his mother. SOCIAL HISTORY: He does not smoke. Rarely drinks alcohol. Has no drug use. He is . PHYSICAL EXAM: He is a height of 5 feet 11 inches, weight of 217 pounds with BMI of 33. Temperature is 100.1, pulse is 127, respirations are 30, blood pressure 116/78, respirations are 30. Head is normocephalic and atraumatic. His abdomen is obese, diffusely tender, well healed scars. Exam is limited due to the patient getting an enema. DIAGNOSTIC STUDIES/LAB DATA: WBCs 29.3, hemoglobin 18.2, hematocrit 54, platelets 209. Sodium 136, potassium 5.7, chloride 107, bicarb 20, BUN 48, creatinine 2.34, glucose 280, lactate 3.7, calcium 7.7. Total bili is 4.4, direct bili is 1.2, AST is 78, ALT is 118, alk phos 57. CT images were reviewed. IMPRESSION: A 73-year-old male with severe acute pancreatitis, which appears secondary to a passed gallstone. PLAN/RECOMMENDATION: The patient needs aggressive resuscitation and plans have been made to transfer him to the intensive care unit for this and for close monitoring. He is not in need of any surgical interventions at this point. He may be at risk for developing pancreatic necrosis given the severity of his pancreatitis and the fact that he is presenting with evidence of organ failure. Ultimately, he would be recommended to have cholecystectomy once pancreatitis resolves given his cholelithiasis. Surgical associates will be available should surgical questions arise. [id number] #: [id number] [place]
[2019-02-02 21:44] VITALS: BP 117/83
[2019-02-02] MEDS ORDERED: ZOSYN 3.375 GM Q8H per EXTENDED INFUSION IVPB SCH ×2 (22:00)
[2019-02-03] MEDS ORDERED: Influenza VAC *QUAD* 2019-20* 0.5 ML SYRINGE IM ONE (09:00)
== END 2019-02-02 21:57 | disposition short-term general hospital (02) | DRG 439 ==
LOC: ED 16:32 → MED 21:05 → ICU 02-02 20:34
PROVIDERS: ADMIT Internal Medicine; ATTEND Internal Medicine
DX: K85.10 Biliary acute pancreatitis without necrosis or infection (principal); N17.9 Acute kidney failure, unspecified; E87.2 Acidosis; K80.21 Calculus of gallbladder without cholecystitis with obstruction; E87.5 Hyperkalemia; E86.0 Dehydration; I10 Essential (primary) hypertension; E78.5 Hyperlipidemia, unspecified; D72.829 Elevated white blood cell count, unspecified; R59.1 Generalized enlarged lymph nodes; E66.9 Obesity, unspecified; Z68.30 Body mass index [BMI] 30.0-30.9, adult; Z79.899 Other long term (current) drug therapy; Z80.0 Family history of malignant neoplasm of digestive organs
CPT/HCPCS: 36415; 71275; 74174; 74181; 76376; 76705; 80048; 80053; 80061; 80076; 81003; 81015; 82150; 82550; 83010; 83605; 83615; 83690; 83735; 84443; 84484; 85025; 85027; 85045; 86140; 86880; 87040; 87086; 93005; 96361; 96374; 96375; 99284; A9270-GY; J0610; J1170; J1644; J1815; J2270; J2405; J2543; Q9967